=== PATIENT | male | born 1950 | race Two or more races ===

== ENCOUNTER 2017-11-10 23:01 | Emergency (ER) | payer MEDICARE, OTHER, SELFPAY ==
[~2017-11-10] VITALS: Ht 167.6 cm; Wt 81.6 kg
[2017-11-10] MEDS ORDERED: AUGMENTIN 500M500 MG ORAL (23:16)
[2017-11-10] MEDS ORDERED: GUAIFENESIN-COD10 ML PO (23:16)
[2017-11-10] MEDS ORDERED: IBUPROFEN600 MG ORAL (23:16)
[2017-11-11] MEDS ORDERED: ALBUTEROL SULF8.5 GM INH (00:07)
[2017-11-11] MEDS: Albuterol/Ipratropium 3ml neb HHN ONE (00:16)
[2017-11-11 00:47] VITALS: BP 127/82
--- NOTE | 2017-11-11 01:16 | Emergency Room Report ---
History of Present Illness General Chief Complaint: Flu Like Symptoms Source: Patient Present Illness HPI Patient is a 67-year-old male who presented after sore throat and cough. Patient been seen at [facility] several days ago and was started on oral antibiotics. The patient reported having a nonproductive cough as well as nasal congestion. He had associated sore throat. The patient denies any fever. He had not been vomiting. Cough is worse at nighttime. Patient been previous he prescribed Augmentin and codeinecough syrup.. Allergies: Coded Allergies: No Known Allergies (Unverified , 11/10/17) Patient History Past Medical History: see triage record Reviewed Nursing Documentation: PMH: Agreed, PSxH: Agreed Nursing Documentation-PMH Past Medical History: No Stated History Review of Systems All Other Systems: negative except mentioned in HPI Physical Exam Vital Signs Date Time Temp Pulse Resp B/P (MAP) Pulse Ox O2 Delivery O2 Flow Rate FiO2 11/10/17 23:08 98.2 82 16 127/82 95 Room Air 98.2 11/11/17 00:16 21 Sp02 EP Interpretation: reviewed, normal General Appearance: normal inspection, well appearing, no apparent distress, alert, GCS 15 Head: atraumatic ENT: normal ENT inspection, hearing grossly normal, normal voice Neck: normal inspection, full range of motion, supple, no bony tend Respiratory: normal inspection, lungs clear, normal breath sounds, no respiratory distress, no retraction, no wheezing Cardiovascular #1: regular rate, rhythm, no edema Gastrointestinal: normal inspection, normal bowel sounds, non tender, soft, no guarding, no hernia Genitourinary: no CVA tenderness Musculoskeletal: normal inspection, back normal, normal range of motion Neurologic: normal inspection, alert, responsive, speech normal Psychiatric: normal inspection, judgement/insight normal, mood/affect normal Skin: normal inspection, normal color, no rash Medical Decision Making Diagnostic Impression: Primary Impression: Bronchitis ER Course patient presented for cough.Differential diagnosis included but was not limited to bronchitis, pneumonia, pulmonary embolism, pericarditis, asthma, foreign body. Patient has a benign exam and does not appear to require any further imaging or laboratory testing at this time. Patient was given breathing treatment. Patient was noted to be taking cough syrup. He was advised to follow up with primary care physician for recheck. The patient is advised to follow up with primary care doctor in 1-2 days. Patient is advised to return if any worsening condition or if any changes in status that are concerning. This report is dictated with [employer] collator hand software which may occasionally lead to discrepancies related to use of this software. Last Vital Signs Date Time Temp Pulse Resp B/P (MAP) Pulse Ox O2 Delivery O2 Flow Rate FiO2 11/11/17 00:47 98.2 16 127/82 95 Room Air 21 98.2 11/11/17 00:17 83 Status: improved Disposition: HOME, SELF-CARE Condition: Stable Scripts Albuterol Sulfate* (ALBUTEROL SULFATE MDI*) 8.5 Gm Hfa.aer.ad 2 PUFF INH Q4H, #1 INH 0 Refills Prov: Jhonny Meyers 11/11/17 Patient Instructions: Acute Bronchitis Jhonny Meyers Nov 11, 2017 01:16
== END 2017-11-11 00:49 | disposition home or self-care (01) ==
LOC: EMR 23:31
DX: J40 Bronchitis, not specified as acute or chronic (principal)
CPT/HCPCS: 94640; 94664; 99283; J7620